=== PATIENT | female | born 1970 | race Asian ===

== ENCOUNTER 2018-02-24 11:37 | Emergency (ER) | payer MEDICAID, SELFPAY ==
[2018-02-24 11:39] VITALS: BP 118/76; PULSE 66; RESP 17; TEMP 36.7; O2SAT 97; BMI 25.6
--- NOTE | 2018-02-24 11:57 | CT_ITS ---
STUDY: CT BRAIN WITHOUT CONTRAST REASON FOR EXAM: Female, 48 years old. Annoying feeling in head x 1 month RADIATION DOSAGE (If Supplied By Facility): CTDIvol = ( 44.99 ) mGy, DLP = ( 745.49 ) mGycm TECHNIQUE: Transaxial CT imaging of the brain was performed without administration of intravenous contrast material. Individualized dose optimization techniques were used for this CT. COMPARISON: None. FINDINGS: Normal soft tissue structures. Normal calvarium. Normal size ventricles and extra-axial spaces for the patient's age. Normal white matter tracts of the cerebral hemispheres. Normal basal ganglia and thalami. Normal brainstem. Normal cerebellum. There is no intracranial hemorrhage. There are no findings of an acute ischemic infarction. Normal visualized paranasal sinuses. CT/Brain/Head without Contrast IMPRESSION: Normal unenhanced CT scan of the brain. Electronically Signed: Osmar Hernandez DO at 12:40 EST Tel , Service support ,
--- NOTE | 2018-02-24 12:23 | ED.DCSUM_ITS ---
- ER Visit Summary Date of Service: 02/24/18 Chief Complaint: A weird feeling in my head History of Present Illness: The patient is a 48 F presenting for evaluation due to a weird feeling in her head. Patient states that over the course of the last month she has been dealing with issues with a abnormal feeling in her head. She reports that this typically starts when she wakes up in the morning and will persist anywhere from 6 hours to the end her day. She really cannot describe or quantify the type of pain that is associated with it, but states that it is simply just a abnormal feeling in her head. She denies that it is associated with any sort of head injury that preceded this. She does state that she had some change in psychiatric medicines just prior to this starting. Patient states that she does not have any sort of visual changes numbness weakness nausea or vomiting associated with it. She denies any changes in appetite, weight loss, or night sweats. Patient states that she is anxious that she has a brain tumor. Physical Examination: Vital signs: Within normal limits General: Well-nourished well-developed no acute distress Head: Normocephalic atraumatic, no temporal artery tenderness or vesicular rash noted. No sinus tenderness to percussion. Eyes: PERRLA, EOMI. Neck: Supple, no lymphadenopathy, no JVD no meningismus. Negative Brudzinski, Kernig, jolt, and heel strike Cardiovascular: Heart regular rate and rhythm no murmurs Respiratory: Lung sounds clear to auscultation bilaterally no respiratory distress Abdomen: Soft, nontender Extremities: Nontender, no edema Skin: Normal color, no rash, no evidence of petechia Neuro: Alert and oriented ?4, cranial nerves II through XII intact, normal strength, sensation, reflexes, gait, and cerebellar testing Test Results: CT brain found to be negative Emergency Department Course and Treatment: Patient presented for evaluation secondary to basically headache type symptoms. CT brain was negative. Patient has normal vital signs, has no red flag signs or symptoms that would indicate the need for blood work or further workup at this point. Patient has been having these symptoms for a month, day plus or minus are associated with changes in her medic occasions. I believe that her significant anxiety is also playing into this as well. I had extensive conversation with the patient about the fact that this does not require inpatient management that actually puts her at increased risk for iatrogenic infection or other severe complication. I recommended outpatient follow-up with a neurologist. Patient will be sent home with a course of Naprosyn, and instructed to follow-up with neurology. Disposition: Discharge Impression: 1. Tension headache This note was generated with [employer] dictation software. It may contain incorrect words, spelling, and punctuation that were not noted in review of the chart prior to signing ED Disposition - Plan for ED Patient: Disposition: Home or Assisted Living Chief Complaint: Headache Diagnosis: Tension headache Instructions: ED Headache Tension Prescriptions: Naproxen [Naprosyn] 500 mg PO BID PRN #20 tab Referrals: Juanito Combs MD [STAFF PHYSICIAN] -
[2018-02-24] MEDS: Naproxen 500 MG Tablet PO (13:02)
[2018-02-24 13:07] VITALS: BP 120/75; PULSE 85; RESP 16; O2SAT 99
--- NOTE | 2018-02-24 13:08 | ED.RN ---
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 patient states that she is very anxious and her medication that she takes at home is not working. pt also can not tell physician what medication she takes for anxiety or which physician she sees or who prescribed her medication. er physician notified of patient request. pt was cooperative and took naproxen for her initial er complaint.
== END 2018-02-24 13:36 | disposition home or self-care (01) ==
PROVIDERS: Emergency Provider Emergency Medicine
DX: G44.209 Tension-type headache, unspecified, not intractable (principal); F41.9 Anxiety disorder, unspecified
CPT/HCPCS: 70450; 99283

== ENCOUNTER 2018-02-24 15:55 | Emergency (ER) | payer MEDICAID, SELFPAY ==
[2018-02-24 11:39] VITALS: BMI 25.6
[2018-02-24 15:56] VITALS: BP 133/91; PULSE 80; RESP 17; TEMP 36.4; O2SAT 96; BMI 25.6
--- NOTE | 2018-02-24 16:11 | ED.VISSUMM ---
- ER Visit Summary Date of Service: 02/24/18 Chief Complaint: Agitation History of Present Illness: The patient is a 48 F presenting with agitation. Patient is pacing around the room. She was seen in the ED earlier for a funny feeling in her head. She states that this has been ongoing for the past month. She has been seeing a psychiatrist who is treating her for bipolar disorder and OCD. She states she has had multiple changes to her medications and this is not helping. She does not know the name of her medications or the name of her psychiatrist. She denies suicidal ideation. She denies paranoia. Denies hallucination. Denies alcohol or drug use. Physical Examination: Vitals are stable. Patient is afebrile. Alert no acute distress. HEENT exam is unremarkable. Neck is supple. Lungs are clear and equal bilaterally. Heart is regular rate and rhythm. Extremities are unremarkable. Skin is warm and dry. No focal neurologic deficit. Pressured speech. Denies suicidal ideation Remainder of exam is unremarkable. Emergency Department Course and Treatment: Patient was given Tylenol, Ativan. CBC, chemistries unremarkable. HCG negative. Tox and alcohol are negative. Patient is able to sit still after she was given Ativan. She is requesting to be seen by the counselor. Discussed with the counseling center for evaluation. Disposition: Per counseling center Impression: Manic episode This note was generated with [employer] dictation software. It may contain incorrect words, spelling, and punctuation that were not noted in review of the chart prior to signing ED Disposition - Plan for ED Patient: Chief Complaint: Headache Referrals: Care Physician,No Primary [Primary Care Provider] -
[2018-02-24] MEDS: LORazepam 1 MG Tablet PO (16:26)
[2018-02-24] MEDS: Acetaminophen 500 MG Tablet 1000 MG PO (16:26)
[2018-02-24 16:27] LABS: Absolute Neutrophil Count 6.3 X10^3/uL (2.0-7.7); Basophil# 0.07 X10^3/uL; Basophil% 0.7 % (0-1); Eosinophil# 0.37 X10^3/uL; Eosinophils% 3.9 % (0-5); Lymphocyte % 22.1 % (19-41); Mean Corp Hgb Conc 32.6 g/gl (32-36); Mean Corpuscular Hgb 28.6 pg (27.0-32.0); Mean Corpuscular Volume 87.8 fL (81-99); Mean Platelet Vol. 10.4 fl (6.2-12.0); Monocyte% 6.3 % (0-10); Neutrophil # 6.34 X10^3/uL (2.7-7.7); Neutrophil % 66.8 % (47-70); POSITIVE COUNT NO; POSITIVE DIFFERENTIAL NO; POSITIVE MORPHOLOGY NO; Platelet Count 296 K/mm3 (150-450); RBC Distribution Width CV 13.3 % (11.6-14.6); RBC Distribution Width SD 42.7 fl (35.1-43.9); Red Blood Count 5.24 M/mm3 (4.2-5.4); White Blood Count 9.5 K/mm3 (4.4-11.0)
[2018-02-24 16:38] LABS: Anion Gap 9 (5-15); BUN 15 mg/dL (7-18); BUN/Creat Ratio 19.5 RATIO (10-20); Calcium,Total 8.4 mg/dL (8.5-10.1); Chloride 107 mmol/L (98-107); Creatinine, Serum 0.77 mg/dL (0.55-1.02); EST Glomerular Filtration Rate 85 mL/min (>60); Est Glom Filt Rate - Afr Amer 102 mL/min (>60); Estimated Creatinine Clearance 66.69 ml/min; Glucose 135 mg/dL (74-106); Potassium 3.8 mmol/L (3.5-5.1); Sodium Level 141 mmol/L (136-145)
[2018-02-24 16:44] LABS: Amphetamine Urine VISTA NEGATIVE (<1000 ng/mL); Barbiturate Urine VISTA NEGATIVE (< 200 ng/mL); Benzodiazepine Urine VISTA NEGATIVE (< 200 ng/mL); Cocaine Urine VISTA NEGATIVE (< 300 ng/mL); Ecstacy Urine VISTA NEGATIVE (< 500 ng/mL); Methadone Urine VISTA NEGATIVE (< 300 ng/mL); PCP Urine VISTA NEGATIVE (< 25 ng/mL); THC Urine VISTA NEGATIVE (< 50 ng/mL); Vista UDS pH Range 7
[2018-02-24 16:44] LABS: Pregnancy, Serum, hCG Quali. NEGATIVE Negative (0-9 Nonpreg)
--- NOTE | 2018-02-24 17:13 | ED.RN ---
CRISIS CALLED AND MADE AWARE THAT PATIENT NEEDS TO BE EVALUATED.
--- NOTE | 2018-02-24 17:33 | CM.ED ---
Social Work Note Discussed with physician who believes that pt will need to be evaluated by crisis. Consult made. Suzanne Perez, LARRY, DILCIA
[2018-02-24 19:01] VITALS: BP 116/78; PULSE 64; RESP 16; O2SAT 98
--- NOTE | 2018-02-24 20:49 | ED.RN ---
APRIL FROM CRISIS CALLED AND STATED SHE IS ON THE WAY HERE TO SEE THIS PT.
--- NOTE | 2018-02-24 21:21 | ED.RN ---
APRIL FROM [facility]ISIS IS HERE TO SEE THIS PT.
[2018-02-24 23:00] VITALS: BP 112/77; PULSE 77; RESP 14; TEMP 36.8; O2SAT 99
[2018-02-25 02:29] VITALS: RESP 16; O2SAT 98
[2018-02-25 05:04] VITALS: BP 129/74; PULSE 72; RESP 15; O2SAT 98
[2018-02-25 07:22] VITALS: BP 135/94; PULSE 79; RESP 16; O2SAT 98
--- NOTE | 2018-02-25 07:24 | ED.RN ---
PT REQUESTING ATIVAN BECAUSE HER BRAIN IS HURTING HER AND TORMENTING HER AGAIN AND ATIVAN IS THE ONLY THING THAT HELPS.
[2018-02-25] MEDS: LORazepam 1 MG Tablet PO (07:34)
--- NOTE | 2018-02-25 07:35 | ED.RN ---
PT PACING AROUND THE ROOM AND TALKING ON THE PHONE, NO DISTRESS NOTED. SOON SHE GOT OFF THE PHONE SHE STARTED GROANING AND ASKED IF I WAS GIVING HER HER ATIVAN. WHEN TOLD IT WAS SHE GROANED MORE AND LAID IN THE BED SAYING SHE WAS BEING TORMENTED. ONCE IT WAS GIVEN SHE GOT OFF THE BED AND AMBULATED BACK TO THE COUNTER TO GET HER BREAKFAST AND THE GROANING STOPPED.
[2018-02-25 11:20] VITALS: BP 126/74; PULSE 69; RESP 15; O2SAT 98
[2018-02-25 14:24] VITALS: BP 114/67; PULSE 72; RESP 15; O2SAT 98
[2018-02-25 14:26] VITALS: BP 114/67; PULSE 72; RESP 15; TEMP 36.8; O2SAT 98
== END 2018-02-25 14:26 ==
PROVIDERS: Emergency Provider Emergency Medicine
DX: F30.9 Manic episode, unspecified (principal); F31.9 Bipolar disorder, unspecified; F42.9 Obsessive-compulsive disorder, unspecified; G44.209 Tension-type headache, unspecified, not intractable; F41.9 Anxiety disorder, unspecified
CPT/HCPCS: 70450; 80048; 80307; 80320; 84703; 85025; 99283; 99285; G0480

== ENCOUNTER → 2018-06-24 | Outpatient (CLI) | payer MEDICAID, SELFPAY ==
[2018-06-24 15:46] LABS: Absolute Lymphocyte Count 1.92 X10^3/ul (0.83-4.51); Absolute Neutrophil Count 3.2 X10^3/uL (2.0-7.7); Basophil# 0.08 X10^3/uL; Basophil% 1.4 % (0-1); Differential Indicated SCAN CRITERIA MET; Eosinophil# 0.13 X10^3/uL; Eosinophils% 2.2 % (0-5); Hematocrit 41.5 % (37-47); Hemoglobin 14.1 g/dl (12.0-15.0); Lymphocyte # 1.92 X10^3/ul (4.0); Lymphocyte % 32.5 % (19-41); Mean Corpuscular Hgb 29.3 pg (27.0-32.0); Mean Corpuscular Volume 86.1 fL (81-99); Mean Platelet Vol. 10.3 fl (6.2-12.0); Monocyte# 0.59 X10^3/uL; Neutrophil # 3.18 X10^3/uL (2.7-7.7); Neutrophil % 53.7 % (47-70); POSITIVE COUNT NO; POSITIVE DIFFERENTIAL NO; POSITIVE MORPHOLOGY YES; Platelet Count 263 K/mm3 (150-450); RBC Distribution Width CV 12.9 % (11.6-14.6); RBC Distribution Width SD 40.9 fl (35.1-43.9); Red Blood Count 4.82 M/mm3 (4.2-5.4); White Blood Count 5.9 K/mm3 (4.4-11.0)
[2018-06-24 16:22] LABS: AST(SGOT) 17 U/L (15-37); Alanine Aminotransfer ALT/SGPT 23 U/L (13-56); Albumin, Serum 3.6 g/dL (3.2-5.0); Alkaline Phosphatase 74 U/L (45-117); Anion Gap 7 (5-15); BUN 15 mg/dL (7-18); BUN/Creat Ratio 20.5 RATIO (10-20); Calcium,Total 7.9 mg/dL (8.5-10.1); Chloride 107 mmol/L (98-107); Cholesterol 188 mg/dL (200); Creatinine, Serum 0.73 mg/dL (0.55-1.02); EST Glomerular Filtration Rate 90 mL/min (>60); Est Glom Filt Rate - Afr Amer 108 mL/min (>60); Globulin 3.5 g/dL (2.2-4.2); Glucose 92 mg/dL (74-106); High Density Lipoprotein 48 mg/dL; Potassium 3.9 mmol/L (3.5-5.1); Protein, Total 7.1 g/dL (6.4-8.2); Sodium Level 140 mmol/L (136-145); Thyroid Stim Hormone (TSH) 2.29 uIU/mL (0.358-3.74); Triglycerides 216 mg/dL; Very Low Density Lipoprotein 43 mg/dL (5-40)
[2018-06-24 16:27] LABS: Differential Comment SCANNED
== END | disposition home or self-care (01) ==
DX: R53.83 Other fatigue (principal); F19.10 Other psychoactive substance abuse, uncomplicated; Z79.899 Other long term (current) drug therapy
CPT/HCPCS: 36415; 80053; 80061; 80156; 84443; 85025

== ENCOUNTER → 2018-10-10 10:09 | Outpatient (CLI) | payer MEDICAID, SELFPAY ==
[2018-10-10 11:33] LABS: Absolute Lymphocyte Count 1.42 X10^3/uL (0.83-4.51); Absolute Neutrophil Count 2.5 X10^3/uL (2.0-7.7); Basophil# 0.06 X10^3/uL; Basophil% 1.4 % (0-1); Eosinophil# 0.13 X10^3/uL; Eosinophils% 2.9 % (0-5); Hematocrit 41.5 % (37-47); Hemoglobin 13.8 g/dL (12.0-15.0); Lymphocyte # 1.42 X10^3/ul (4.0); Lymphocyte % 32.1 % (19-41); Mean Corp Hgb Conc 33.3 g/dL (32-36); Mean Corpuscular Hgb 28.8 pg (27.0-32.0); Mean Corpuscular Volume 86.5 fL (81-99); Mean Platelet Vol. 10.2 fl (6.2-12.0); Monocyte# 0.33 X10^3/uL; Monocyte% 7.5 % (0-10); NRBC Flagged by Analyzer 0 % (0-5); Neutrophil # 2.47 X10^3/uL (2.7-7.7); Neutrophil % 55.9 % (47-70); Platelet Count 244 K/mm3 (150-450); RBC Distribution Width CV 12.3 % (11.6-14.6); RBC Distribution Width SD 39.2 fl (35.1-43.9); White Blood Count 4.4 K/mm3 (4.4-11.0)
[2018-10-10 11:58] LABS: Carbamazepine (Tegretol) 9.4 ug/mL (4.0-12.0)
[2018-10-10 12:04] LABS: BUN 17 mg/dL (7-18); Creatinine, Serum 0.79 mg/dL (0.55-1.02); EST Glomerular Filtration Rate 82 mL/min (>60); Glucose 92 mg/dL (74-106)
[2018-10-10 12:05] LABS: ALB/GLOB Ratio 1.1 RATIO (0.9-2.4); AST(SGOT) 12 U/L (15-37); Alanine Aminotransfer ALT/SGPT 19 U/L (13-56); Albumin, Serum 3.6 g/dL (3.2-5.0); Alkaline Phosphatase 78 U/L (45-117); Anion Gap 5 (5-15); BUN/Creat Ratio 21.5 RATIO (10-20); Calcium,Total 8.1 mg/dL (8.5-10.1); Chloride 108 mmol/L (98-107); Cholesterol 185 mg/dL (200); Est Glom Filt Rate - Afr Amer 99 mL/min (>60); Globulin 3.4 g/dL (2.2-4.2); High Density Lipoprotein 37 mg/dL; Potassium 3.8 mmol/L (3.5-5.1); Sodium Level 142 mmol/L (136-145); Thyroid Stim Hormone (TSH) 1.43 uIU/mL (0.358-3.74); Triglycerides 272 mg/dL; Very Low Density Lipoprotein 54 mg/dL (5-40)
== END ==
PROVIDERS: Referring Provider Nurse Practitioner Family; Visit Provider Nurse Practitioner Family
DX: R53.83 Other fatigue (principal); F19.10 Other psychoactive substance abuse, uncomplicated; Z79.899 Other long term (current) drug therapy
CPT/HCPCS: 36415; 80053; 80061; 80156; 84443; 85025